=== PATIENT | female | born 1955 | race Caucasian/White ===

== ENCOUNTER 2017-08-23 11:12 | Emergency (ER) | payer OTHER ==
[2017-08-23 11:19] VITALS: BP 182/74; PULSE 71; TEMP 98; BMI 39.1
--- NOTE | 2017-08-23 13:37 | PDOC ---
History of Present Illness - General Chief Complaint: Injury Stated Complaint: RT TOE INJURY Time Seen by Provider: 08/23/17 11:40 History Source: Patient Exam Limitations: No Limitations - History of Present Illness Initial Comments: 08/23/17 15:34 CHIEF COMPLAINT: Right great toe pain HISTORY OF PRESENT ILLNESS: Patient is a 62-year-old female presents with right great toe pain, nontraumatic, pain to right medial great toe. Occurred: reports: other (3 days) Severity: Yes: moderate Lower Extremity Pain Location: right: 1st toe Lower Ext. Injury Location - Specific Injury Location Foot: right foot pain Extremity Pain Location - Extremity Pain Location Extremity Pain Locations: right: 1st toe Past History - Past Medical History Allergies/Adverse Reactions: Allergies Allergy/AdvReac Type Severity Reaction Status Date / Time No Known Allergies Allergy Verified 08/23/17 11:15 Home Medications: Ambulatory Orders Atorvastatin Ca [Lipitor] 20 mg PO HS #0 tablet 12/26/11 Benazepril HCl [Lotensin] 40 mg PO DAILY #0 tablet 12/26/11 Multivitamins [Multivit ([facility] Formulary)] 1 tab PO DAILY 03/04/14 Omeprazole [Prilosec] 20 mg PO DAILY #0 capsule. 03/04/14 Vitamin E 1 tab PO DAILY 03/04/14 Naproxen [Naprosyn -] 500 mg PO BID #14 tablet 08/23/17 Anemia: No Asthma: No Cancer: No Cardiac Disorders: No CVA: No COPD: No CHF: No Dementia: No Diabetes: No GI Disorders: Yes (H/O COLONIC POLYP) Disorders: No HTN: Yes Hypercholesterolemia: Yes Kidney Stones: Yes Liver Disease: No Seizures: No Thyroid Disease: No - Surgical History Abdominal Surgery: No Appendectomy: No Cardiac Surgery: No Cholecystectomy: No Lung Surgery: No Neurologic Surgery: No Orthopedic Surgery: Yes (right hip surgery) - Immunization History Immunization Up to Date: Yes - Suicide/Smoking/Psychosocial Hx Smoking Status: Yes Smoking History: Never smoked Have you smoked in the past 12 months: Yes Number of Cigarettes Smoked Daily: 10 Information on smoking cessation initiated: No 'Breaking Loose' booklet given: 12/24/11 Hx Alcohol Use: No Drug/Substance Use Hx: No Substance Use Type: None Hx Substance Use Treatment: No Review of Systems - Review of Systems Constitutional: No: Symptoms Reported Respiratory: No: Symptoms reported Cardiac (ROS): No: Symptoms Reported Musculoskeletal: Yes: Joint Pain, Joint Swelling Integumentary: No: Bruising, Erythema Hematologic/Lymphatic: No: Symptoms Reported All Other Systems: Reviewed and Negative *Physical Exam - Vital Signs Last Vital Signs Temp Pulse Resp BP Pulse Ox 98.0 F 71 16 182/74 99 08/23/17 11:16 08/23/17 11:16 08/23/17 11:16 08/23/17 11:16 08/23/17 11:16 - Physical Exam General Appearance: Yes: Appropriately Dressed. No: Apparent Distress Respiratory/Chest: positive: Lungs Clear, Normal Breath Sounds Cardiovascular: positive: Regular Rhythm, Regular Rate Extremity: positive: Swelling, Erythema. negative: Coldness, Cyanosis, Calf Tenderness, Inflammation Integumentary: positive: Normal Color, Dry, Erythema. negative: Swelling, Ecchymosis, Bruising Neurologic: positive: Alert, Normal Mood/Affect, Normal Response, Motor Strength 5/5 ED Treatment Course - RADIOLOGY Radiology Studies Ordered: Category Date Time Status FOOT-RIGHT [RAD] Stat Radiology 08/23/17 12:33 Completed Medical Decision Making - Medical Decision Making 08/23/17 15:40 A/P: Patient with right great toe pain, Sent to xray, and uric acid sent. 08/23/17 15:42 Laboratory Results - last 24 hr 08/23/17 12:45 Uric Acid 6.7 Uric acid unremarkable for gout, X-ray with hallus valgus, bunion. Will DC patient home on anti-inflammatories and follow up with podiatry. *DC/Admit/Observation/Transfer Diagnosis at time of Disposition: Hallux valgus (acquired), right foot - Discharge Dispostion Disposition: HOME Condition at time of disposition: Stable Admit: No - Prescriptions Prescriptions: Naproxen [Naprosyn -] 500 mg PO BID #14 tablet - Referrals Referrals: Lamar Rogers [Primary Care Provider] - - Patient Instructions Printed Discharge Instructions: DI for Bunion Additional Instructions: X-rays negative for acute fracture however demonstrate hallux valgus, bunion which can be causing pain. Recommend follow-up with podiatry. Anti-inflammatories for pain. - Post Discharge Activity Forms/Work/School Notes: Back to Work
== END 2017-08-23 14:01 | disposition home or self-care (01) ==
LOC: JERFT 11:12
DX: M20.11 Hallux valgus (acquired), right foot (principal); I10 Essential (primary) hypertension; E78.00 Pure hypercholesterolemia, unspecified; Z86.010 Personal history of colon polyps; Z87.891 Personal history of nicotine dependence
CPT/HCPCS: 36415; 73630-TC-RT-FY; 84550; 99281-25

== ENCOUNTER 2020-10-21 22:51 | Observation (INO) | payer OTHER ==
[2020-10-22 00:40] LABS: BASO % 1.1 % (0-2.0); EOS % 1.2 % (0-4.5); HEMATOCRIT 40.9 % (32.4-45.2); HEMOGLOBIN 14.1 GM/dL (10.7-15.3); LYMPH % 34.9 % (8-40); MCH 32.3 pg (25.7-33.7); MCHC 34.5 g/dl (32.0-36.0); MEAN CELL VOLUME 93.7 fl (80-96); MEAN PLT VOLUME 8.5 fl (7.5-11.1); MONO % 8.2 % (3.8-10.2); NEUT % 54.6 % (42.8-82.8); PLATELET COUNT 209 K/MM3 (134-434); RBC 4.36 M/mm3 (3.60-5.2); RDW 13.6 % (11.6-15.6); WHITE BLOOD COUNT 8.3 K/mm3 (4.0-10.0)
[2020-10-22 00:53] LABS: CHLORIDE 108 mmol/L (98-107); SODIUM 139 mmol/L (136-145)
[2020-10-22 00:55] LABS: CALCIUM 8.6 mg/dL (8.5-10.1)
[2020-10-22 00:56] LABS: ALBUMIN 3.8 g/dl (3.4-5.0); ANION GAP 6 MMOL/L (8-16); BLOOD UREA NITROGEN 17.3 mg/dL (7-18); CO2 26 mmol/L (21-32); GLUCOSE,RANDOM 103 mg/dL (74-106); LIPASE 110 U/L (73-393); MAGNESIUM 2.1 mg/dL (1.8-2.4)
[2020-10-22 00:59] LABS: CREATININE 0.8 mg/dL (0.55-1.3); SGPT/ALT 20 U/L (13-61)
[2020-10-22 01:00] LABS: BILIRUBIN,TOTAL 0.5 mg/dL (0.2-1); SGOT/AST 24 U/L (15-37); TOT PROT 7.3 g/dl (6.4-8.2)
[2020-10-22 01:01] LABS: ALK PHOS 110 U/L (45-117)
[2020-10-22 04:02] VITALS: BMI 40.5
[2020-10-22 07:16] LABS: BASO % 1.1 % (0-2.0); EOS % 1.5 % (0-4.5); HEMATOCRIT 38.5 % (32.4-45.2); HEMOGLOBIN 13.2 GM/dL (10.7-15.3); LYMPH % 38.4 % (8-40); MCH 32.1 pg (25.7-33.7); MCHC 34.4 g/dl (32.0-36.0); MEAN CELL VOLUME 93.4 fl (80-96); MEAN PLT VOLUME 8.9 fl (7.5-11.1); MONO % 8.3 % (3.8-10.2); NEUT % 50.7 % (42.8-82.8); PLATELET COUNT 188 K/MM3 (134-434); RBC 4.12 M/mm3 (3.60-5.2); RDW 13.5 % (11.6-15.6); WHITE BLOOD COUNT 6.3 K/mm3 (4.0-10.0)
[2020-10-22 07:24] LABS: CHLORIDE 110 mmol/L (98-107); SODIUM 139 mmol/L (136-145)
[2020-10-22 07:26] LABS: CALCIUM 8.3 mg/dL (8.5-10.1)
[2020-10-22 07:27] LABS: ALBUMIN 3.4 g/dl (3.4-5.0); ANION GAP 6 MMOL/L (8-16); BLOOD UREA NITROGEN 16.4 mg/dL (7-18); CO2 24 mmol/L (21-32); GLUCOSE,RANDOM 81 mg/dL (74-106); MAGNESIUM 2.2 mg/dL (1.8-2.4)
[2020-10-22 07:29] LABS: CHOLESTEROL 165 mg/dL (50-200)
[2020-10-22 07:30] LABS: CREATININE 0.7 mg/dL (0.55-1.3); PHOSPHOROUS 4.4 mg/dL (2.5-4.9); SGOT/AST 18 U/L (15-37); SGPT/ALT 18 U/L (13-61); TRIGLYCERIDES 234 mg/dL (0-150)
[2020-10-22 07:31] LABS: BILIRUBIN,TOTAL 0.6 mg/dL (0.2-1); LDL CHOLESTEROL (ONLY SJRH) 97 mg/dL (5-100); TOT PROT 6.5 g/dl (6.4-8.2)
[2020-10-22 07:32] LABS: ALK PHOS 99 U/L (45-117); HDL CHOLESTEROL 35 mg/dL (40-60)
[2020-10-22] MEDS ORDERED: ENOXAPARIN NA (PORCINE) 40 MG/0.4 ML DISP.SYRIN SQ SCH (10:00)
[2020-10-22 15:40] VITALS: BP 138/92; PULSE 66; TEMP 98.1
== END 2020-10-22 18:22 | disposition home or self-care (01) ==
LOC: JER 22:51 → JERBED 10-22 01:12 → J4W 10-22 03:30
PROVIDERS: ADMIT Internal Medicine; ATTEND Internal Medicine
PROC: 3E023GC Introduction of Other Therapeutic Substance into Muscle, Percutaneous Approach (ICD-10-PCS; principal; 2020-10-22)
DX: Z87.891 Personal history of nicotine dependence (principal); I10 Essential (primary) hypertension; E78.5 Hyperlipidemia, unspecified; R00.1 Bradycardia, unspecified; Z29.9 Encounter for prophylactic measures, unspecified; E66.01 Morbid (severe) obesity due to excess calories; Z68.41 Body mass index [BMI] 40.0-44.9, adult
CPT/HCPCS: 36415; 70450-TC; 71045-TC-FY; 80053; 80061; 82550; 83690; 83721; 83735; 84100; 84484; 85025; 93005; 93010; 93970-TC; 99285-25; C9803; G0378; U0003; U0005

== ENCOUNTER 2021-02-02 04:25 | Day surgery (SDC) | payer OTHER ==
[2021-01-31 18:10] VITALS: BMI 38.5
[2021-02-02] MEDS ORDERED: LIDOCAINE HCL 1%, 10 MG/ML (20ML VIAL) ONE (07:09)
[2021-02-02] MEDS ORDERED: HEPARIN NA (PORCINE) 5,000 UNITS/ML 1ML VIAL ONE ×2 (07:09→08:24)
[2021-02-02] MEDS ORDERED: PROPOFOL 20 ML ONE (07:17)
[2021-02-02] MEDS ORDERED: MIDAZOLAM HCL 2 MG/2 ML SINGLE DOSE VIAL ONE (07:17)
[2021-02-02] MEDS ORDERED: SUCCINYLCHOLINE CHLORIDE 200 MG/10 ML SYRINGE ONE (07:17)
[2021-02-02] MEDS ORDERED: ceFAZolin 2 GRAM PREMIX BAG IVPB ONE (08:00)
[2021-02-02] MEDS ORDERED: LIDOCAINE HCL 1%, 10 MG/ML (20ML VIAL) NR ONE ×2 (08:12)
[2021-02-02] MEDS ORDERED: HEPARIN NA (PORCINE) 5,000 UNITS/ML 1ML VIAL SQ ONE (08:13)
[2021-02-02] MEDS ORDERED: ONDANSETRON 4 MG/2 ML VIAL IVPUSH PRN (08:49)
[2021-02-02] MEDS ORDERED: oxyCODONE HCL 5 MG TABLET PO PRN ×2 (08:49)
[2021-02-02] MEDS ORDERED: LACTATED RINGERS SOLUTION 1,000 ML IV SCH (09:00)
[2021-02-02] MEDS ORDERED: CLOPIDOGREL BISULFATE 75 MG TABLET (FP) ONE (09:29)
[2021-02-02] MEDS ORDERED: CLOPIDOGREL BISULFATE 75 MG TABLET (FP) PO SCH (10:00)
[2021-02-02 12:31] VITALS: BP 130/48; PULSE 65; TEMP 97.8
== END 2021-02-02 11:21 | disposition home or self-care (01) ==
LOC: JASU-SURG 04:25
PROVIDERS: ATTEND Surgery Vascular Surgery
PROC: 047L3Z1 Dilation of Left Femoral Artery using Drug-Coated Balloon, Percutaneous Approach (ICD-10-PCS; principal; 2021-02-02 07:30)
DX: I70.212 Atherosclerosis of native arteries of extremities with intermittent claudication, left leg (principal)
CPT/HCPCS: 37225; C1885; 76000-TC-FY; 94760; J1644

== ENCOUNTER 2023-11-23 15:10 | Inpatient (IN) | payer OTHER ==
[2023-11-23 16:37] LABS: BASO % 0.1 % (0-2.0); HEMATOCRIT 35.8 % (32.4-45.2); HEMOGLOBIN 12.5 GM/dL (10.7-15.3); LYMPH % 6.6 % (8-40); MCH 32.1 pg (25.7-33.7); MCHC 34.8 g/dl (32.0-36.0); MEAN CELL VOLUME 92.3 fl (80-96); MEAN PLT VOLUME 7.9 fl (7.5-11.1); MONO % 5.7 % (3.8-10.2); NEUT % 87.6 % (42.8-82.8); PLATELET COUNT 215 10^3/uL (134-434); RBC 3.88 M/mm3 (3.60-5.2); RDW 13.3 % (11.6-15.6); WHITE BLOOD COUNT 9.7 K/mm3 (4.0-10.0)
[2023-11-23 16:41] LABS: INR 0.98 (0.83-1.09); PROTHROMBIN TIME (PATIENT) 11.3 SEC (9.7-13.0)
[2023-11-23 16:44] LABS: ACTIVATED PTT 31.2 SECONDS (25.2-36.5)
[2023-11-23] MEDS: SODIUM CHLORIDE 1,000 ML IV STA (16:44)
[2023-11-23 16:57] LABS: CALCIUM 8.8 mg/dL (8.5-10.1)
[2023-11-23 16:58] LABS: ALBUMIN 2.6 g/dl (3.4-5.0); BLOOD UREA NITROGEN 32.5 mg/dL (7-18); MAGNESIUM 2.5 mg/dL (1.8-2.4)
[2023-11-23 17:01] LABS: CREATININE 1.2 mg/dL (0.55-1.3)
[2023-11-23 17:03] LABS: BILIRUBIN,TOTAL 0.7 mg/dL (0.2-1); TOT PROT 6.9 g/dl (6.4-8.2)
[2023-11-23] MEDS ORDERED: CEFTRIAXONE 1 GM/50 ML BAG ONE (18:24)
[2023-11-23] MEDS: CEFTRIAXONE 1,000 MG in DEXTROSE 5%-WATER - 50 ML IVPB ONE (18:31)
[2023-11-23] MEDS ORDERED: AZITHROMYCIN IVPB 500 MG/250 ML BAG IVPB ONE (18:32)
[2023-11-23] MEDS: AZITHROMYCIN IVPB 500 MG in DEXTROSE 5%-WATER - 250 ML IVPB ONE (18:48)
[2023-11-23] MEDS ORDERED: ALBUTEROL SO4 2.5/IPRATROPIUM 0.5 INH SOL 3 ML VIAL.NEB. NEB PRN (20:59)
[2023-11-23 23:05] LABS: N-TERMINAL BNP 1270.9 pg/ml (5-125)
[2023-11-24 00:19] LABS: EPI CELLS 10 /uL (0-25.1); HYALINE CASTS 1 /uL (0-3.1); URINE APPEARANCE CLEAR; URINE BACTERIA 85 /uL (0-1359); URINE BILIRUBIN NEGATIVE (NEGATIVE); URINE COLOR YELLOW; URINE GLUCOSE (UA) NEGATIVE (NEGATIVE); URINE KETONE NEGATIVE (NEGATIVE); URINE LEUK ESTERASE NEGATIVE (NEGATIVE); URINE NITRITE NEGATIVE (NEGATIVE); URINE PROTEIN TRACE (NEGATIVE); URINE RBC 39 /uL (0-23.9); URINE UROBILINOGEN 0.2 mg/dL (0.2-1.0); URINE WBC 10 /uL (0-25.8)
[2023-11-24] MEDS ORDERED: ACETAMINOPHEN 325 MG TABLET (FP) PO PRN ×2 (01:26→01:31)
[2023-11-24] MEDS ORDERED: ACETAMINOPHEN 325 MG TABLET (FP) ONE (01:40)
[2023-11-24] MEDS: methylPREDNISolone NA SUCC 40 MG/1 ML VIAL IVPUSH SCH (01:42)
[2023-11-24] MEDS: ACETAMINOPHEN 325 MG TABLET (FP) PO ONE (01:42)
[2023-11-24] MEDS: ALBUTEROL SO4 2.5/IPRATROPIUM 0.5 INH SOL 3 ML VIAL.NEB. NEB SCH (04:35)
[2023-11-24] MEDS: levoFLOXacin 500 MG, levoFLOXacin 250 MG PO SCH (06:19)
[2023-11-24 06:25] LABS: HEMATOCRIT 33.1 % (32.4-45.2); HEMOGLOBIN 11.5 GM/dL (10.7-15.3); MCH 32.1 pg (25.7-33.7); MCHC 34.9 g/dl (32.0-36.0); MEAN CELL VOLUME 92.2 fl (80-96); MEAN PLT VOLUME 8.3 fl (7.5-11.1); PLATELET COUNT 209 10^3/uL (134-434); RBC 3.59 M/mm3 (3.60-5.2); RDW 13.1 % (11.6-15.6); WHITE BLOOD COUNT 7.5 K/mm3 (4.0-10.0)
[2023-11-24 06:53] LABS: POTASSIUM 4.3 mmol/L (3.5-5.1)
[2023-11-24 06:55] LABS: CALCIUM 8.2 mg/dL (8.5-10.1)
[2023-11-24 06:56] LABS: ALBUMIN 2.3 g/dl (3.4-5.0); BLOOD UREA NITROGEN 27.4 mg/dL (7-18); MAGNESIUM 2.3 mg/dL (1.8-2.4)
[2023-11-24 06:59] LABS: CREATININE 0.8 mg/dL (0.55-1.3); PHOSPHOROUS 3.2 mg/dL (2.5-4.9)
[2023-11-24 07:00] LABS: BILIRUBIN,TOTAL 0.6 mg/dL (0.2-1); TOT PROT 6.4 g/dl (6.4-8.2)
[2023-11-24] MEDS ORDERED: ALBUTEROL SO4 2.5/IPRATROPIUM 0.5 INH SOL 3 ML VIAL.NEB. NEB ONE ×2 (08:41→12:08)
[2023-11-24] MEDS ORDERED: CLOPIDOGREL BISULFATE 75 MG TABLET (FP) ONE (09:44)
[2023-11-24] MEDS ORDERED: amLODIPine BESYLATE 5 MG TABLET (FP) ONE (09:44)
[2023-11-24] MEDS ORDERED: levoFLOXacin 750 MG TABLET PO SCH (10:00)
[2023-11-24] MEDS: CLOPIDOGREL BISULFATE 75 MG TABLET (FP) PO SCH (10:00)
[2023-11-24] MEDS ORDERED: amLODIPine BESYLATE 10 MG TABLET (FP) PO SCH (10:00)
[2023-11-24] MEDS: amLODIPine BESYLATE 5 MG TABLET (FP) PO SCH (10:00)
[2023-11-24 14:56] VITALS: BMI 30.9
[2023-11-24] MEDS: SODIUM CHLORIDE 1,000 ML IV SCH (15:58)
[2023-11-24 19:26] LABS: POTASSIUM 3.8 mmol/L (3.5-5.1)
[2023-11-24 19:27] LABS: CALCIUM 8.7 mg/dL (8.5-10.1)
[2023-11-24 19:28] LABS: BLOOD UREA NITROGEN 28.3 mg/dL (7-18)
[2023-11-24 19:31] LABS: CREATININE 0.9 mg/dL (0.55-1.3)
[2023-11-24] MEDS: LISINOPRIL 20 MG TABLET PO SCH (21:30)
[2023-11-24] MEDS ORDERED: ATORVASTATIN CA 20 MG TABLET (FP) PO SCH (22:00)
[2023-11-25 09:08] LABS: BASO % 0.2 % (0-2.0); HEMATOCRIT 31.6 % (32.4-45.2); HEMOGLOBIN 10.8 GM/dL (10.7-15.3); LYMPH % 14.3 % (8-40); MCH 31.8 pg (25.7-33.7); MCHC 34.3 g/dl (32.0-36.0); MEAN CELL VOLUME 92.7 fl (80-96); MEAN PLT VOLUME 7.9 fl (7.5-11.1); NEUT % 78.5 % (42.8-82.8); PLATELET COUNT 256 10^3/uL (134-434); RBC 3.41 M/mm3 (3.60-5.2); RDW 13.2 % (11.6-15.6); WHITE BLOOD COUNT 9.1 K/mm3 (4.0-10.0)
[2023-11-25 09:23] LABS: POTASSIUM 4.1 mmol/L (3.5-5.1)
[2023-11-25 09:26] LABS: CALCIUM 8.7 mg/dL (8.5-10.1)
[2023-11-25 09:27] LABS: BLOOD UREA NITROGEN 22.6 mg/dL (7-18)
[2023-11-25 09:28] LABS: ALBUMIN 2.2 g/dl (3.4-5.0)
[2023-11-25 09:29] LABS: CREATININE 0.7 mg/dL (0.55-1.3)
[2023-11-25 09:31] LABS: BILIRUBIN,DIRECT 0.1 mg/dL (0.0-0.2)
[2023-11-25 09:33] LABS: BILIRUBIN,TOTAL 0.4 mg/dL (0.2-1); TOT PROT 6.1 g/dl (6.4-8.2)
[2023-11-25] MEDS: ENOXAPARIN NA (PORCINE) 40 MG/0.4 ML DISP.SYRIN SQ SCH (09:57)
[2023-11-25] MEDS: NICOTINE 7 MG/24 HOURS TOPICAL PATCH TD SCH (16:40)
[2023-11-25 23:33] VITALS: RESP 20
[2023-11-26] MEDS: MELATONIN 5 MG TABLETS PO ONE (00:58)
[2023-11-26 07:41] LABS: BASO % 0.3 % (0-2.0); EOS % 0.3 % (0-4.5); HEMATOCRIT 30.5 % (32.4-45.2); HEMOGLOBIN 10.5 GM/dL (10.7-15.3); LYMPH % 21.7 % (8-40); MCH 32.1 pg (25.7-33.7); MCHC 34.5 g/dl (32.0-36.0); MEAN CELL VOLUME 93.1 fl (80-96); MEAN PLT VOLUME 7.5 fl (7.5-11.1); MONO % 10.7 % (3.8-10.2); PLATELET COUNT 296 10^3/uL (134-434); RBC 3.27 M/mm3 (3.60-5.2); RDW 13.3 % (11.6-15.6)
[2023-11-26 07:50] LABS: POTASSIUM 4.8 mmol/L (3.5-5.1)
[2023-11-26 08:11] LABS: CALCIUM 8.5 mg/dL (8.5-10.1)
[2023-11-26 08:12] LABS: ALBUMIN 2.1 g/dl (3.4-5.0); BLOOD UREA NITROGEN 18.4 mg/dL (7-18)
[2023-11-26 08:14] LABS: CREATININE 0.6 mg/dL (0.55-1.3)
[2023-11-26 08:15] LABS: BILIRUBIN,TOTAL 0.6 mg/dL (0.2-1); TOT PROT 5.9 g/dl (6.4-8.2)
[2023-11-26 10:56] VITALS: BP 109/62; PULSE 58; TEMP 97.7
[2023-11-26] MEDS ORDERED: MELATONIN 5 MG TABLETS PO PRN (22:00)
[2023-11-27] MEDS ORDERED: levoFLOXacin 750 MG TABLET PO SCH (06:00)
== END 2023-11-26 12:18 | disposition home or self-care (01) | DRG 178 ==
LOC: JER 15:10 → OBSVTOIN 18:25 → JERBED 18:25 → J8W 11-24 13:41
PROVIDERS: ADMIT Internal Medicine; ATTEND Nurse Practitioner Acute Care
DX: A48.1 Legionnaires' disease (principal); E87.1 Hypo-osmolality and hyponatremia; I10 Essential (primary) hypertension; E78.5 Hyperlipidemia, unspecified; I73.9 Peripheral vascular disease, unspecified; R74.01 Elevation of levels of liver transaminase levels; F17.210 Nicotine dependence, cigarettes, uncomplicated; D64.9 Anemia, unspecified; E66.9 Obesity, unspecified; Z68.30 Body mass index [BMI] 30.0-30.9, adult
CPT/HCPCS: 0241U-QW; 36415; 71046-TC-FY; 80048; 80053; 80076; 81003; 82248; 82550; 82570; 83735; 83880; 83935; 84100; 84300; 84484; 85025; 85027; 85610; 85730; 86140; 86705; 86707; 86708; 86713; 86803; 87040; 87070; 87086; 87340; 87350; 87517; 87899; 93005; 93010; 94640; 97116-GP; 97161-GP; 99285-25

== ENCOUNTER 2024-06-16 19:19 | Inpatient (IN) | payer OTHER ==
[2024-06-16 19:43] VITALS: BMI 28.1
[2024-06-16] MEDS: SODIUM CHLORIDE 0.9% 500 ML INFUS.BAG IV ONE ×2 (20:40→23:32)
[2024-06-16 21:48] LABS: BASO % 0.3 % (0-2.0); HEMATOCRIT 40.8 % (32.4-45.2); HEMOGLOBIN 14.1 GM/dL (10.7-15.3); LYMPH % 7.7 % (8-40); MCH 32.4 pg (25.7-33.7); MCHC 34.7 g/dl (32.0-36.0); MEAN CELL VOLUME 93.5 fl (80-96); MEAN PLT VOLUME 7.7 fl (7.5-11.1); MONO % 3.4 % (3.8-10.2); NEUT % 88.6 % (42.8-82.8); PLATELET COUNT 215 10^3/uL (134-434); RBC 4.37 M/mm3 (3.60-5.2); RDW 13.1 % (11.6-15.6); WHITE BLOOD COUNT 8.5 K/mm3 (4.0-10.0)
[2024-06-16 21:53] LABS: INR 1.05 (0.83-1.09); PROTHROMBIN TIME (PATIENT) 11.8 SEC (9.7-13.0)
[2024-06-16 21:55] LABS: ACTIVATED PTT 28.1 SECONDS (25.2-36.5)
[2024-06-16 22:12] LABS: POTASSIUM 3.9 mmol/L (3.5-5.1)
[2024-06-16 22:15] LABS: ALBUMIN 3.3 g/dl (3.4-5.0); BLOOD UREA NITROGEN 15.5 mg/dL (7-18); CALCIUM 9.2 mg/dL (8.5-10.1)
[2024-06-16 22:18] LABS: CREATININE 1.3 mg/dL (0.55-1.3)
[2024-06-16 22:20] LABS: BILIRUBIN,TOTAL 1.6 mg/dL (0.2-1); TOT PROT 6.9 g/dl (6.4-8.2)
[2024-06-17] MEDS ORDERED: ACETAMINOPHEN INJECTION 100 ML ONE (00:26)
[2024-06-17] MEDS: ACETAMINOPHEN 1000 MG/100 ML BAG IVPB ONE (00:30)
[2024-06-17] MEDS ORDERED: PIPERACILLIN/TAZOB 3.375 GM 3.375 GM/50 ML BAG IVPB ONE (00:32)
[2024-06-17] MEDS: PIPERACILLIN/TAZOB 3.375 GM 3.375 GM in DEXTROSE 5%-WATER - 50 ML IVPB ONE (00:46)
[2024-06-17] MEDS: SODIUM CHLORIDE 500 ML IV STA ×3 (02:53→04:09)
[2024-06-17] MEDS: SODIUM CHLORIDE 1,000 ML IV SCH (04:24)
[2024-06-17] MEDS: PIPERACILLIN/TAZOB 3.375 GM 50 ML IVPB SCH ×2 (04:28→15:52)
[2024-06-17] MEDS ORDERED: ROCURONIUM BROMIDE 50 MG/5 ML SYRINGE ONE (08:34)
[2024-06-17] MEDS ORDERED: SUCCINYLCHOLINE CHLORIDE 200 MG/10 ML SYRINGE ONE (08:34)
[2024-06-17] MEDS ORDERED: BUPIVACAINE HCL/PF 0.25% (2.5MG/ML) 10 ML VIAL ONE (08:58)
[2024-06-17 08:59] LABS: URINE APPEARANCE CLEAR; URINE BILIRUBIN NEGATIVE (NEGATIVE); URINE COLOR YELLOW; URINE GLUCOSE (UA) NEGATIVE (NEGATIVE); URINE KETONE NEGATIVE (NEGATIVE); URINE LEUK ESTERASE NEGATIVE (NEGATIVE); URINE NITRITE NEGATIVE (NEGATIVE); URINE PROTEIN TRACE (NEGATIVE); URINE UROBILINOGEN 0.2 mg/dL (0.2-1.0)
[2024-06-17 09:07] LABS: BASO % 0.4 % (0-2.0); LYMPH % 7.8 % (8-40); MCH 32.3 pg (25.7-33.7); MCHC 34.2 g/dl (32.0-36.0); MEAN CELL VOLUME 94.4 fl (80-96); MEAN PLT VOLUME 8.2 fl (7.5-11.1); MONO % 2.8 % (3.8-10.2); PLATELET COUNT 178 10^3/uL (134-434); RDW 13.4 % (11.6-15.6); WHITE BLOOD COUNT 9.8 K/mm3 (4.0-10.0)
[2024-06-17 09:08] LABS: INR 1.16 (0.83-1.09); PROTHROMBIN TIME (PATIENT) 13.3 SEC (9.7-13.0)
[2024-06-17 09:13] LABS: POTASSIUM 3.7 mmol/L (3.5-5.1)
[2024-06-17 09:16] LABS: BLOOD UREA NITROGEN 20.1 mg/dL (7-18); MAGNESIUM 1.7 mg/dL (1.8-2.4)
[2024-06-17 09:17] LABS: ALBUMIN 2.4 g/dl (3.4-5.0)
[2024-06-17 09:20] LABS: CREATININE 0.9 mg/dL (0.55-1.3)
[2024-06-17 09:21] LABS: PHOSPHOROUS 3.7 mg/dL (2.5-4.9)
[2024-06-17 09:22] LABS: BILIRUBIN,TOTAL 1.8 mg/dL (0.2-1); TOT PROT 5.4 g/dl (6.4-8.2)
[2024-06-17] MEDS ORDERED: ETOMIDATE 20 MG/10 ML VIAL IVPUSH ONE (09:32)
[2024-06-17] MEDS ORDERED: ONDANSETRON 4 MG/2 ML VIAL ONE (09:33)
[2024-06-17] MEDS ORDERED: DEXAMETHASONE SOD PHOSPHATE 4 MG/1 ML VIAL ONE (09:33)
[2024-06-17] MEDS ORDERED: LIDOCAINE HCL/PF 2% SDV 5ML VIAL ONE (09:33)
[2024-06-17] MEDS ORDERED: NOREPINEPHRINE BITARTRATE 4 MG/4 ML ML IV ONE (09:34)
[2024-06-17] MEDS ORDERED: MIDAZOLAM HCL 2 MG/2 ML SINGLE DOSE VIAL ONE (09:34)
[2024-06-17] MEDS ORDERED: ALBUTEROL SO4 HFA INHALER IH ONE (09:47)
[2024-06-17] MEDS ORDERED: GLYCOPYRROLATE 0.2 MG/1 ML VIAL ONE (09:47)
[2024-06-17] MEDS ORDERED: CLOPIDOGREL BISULFATE 75 MG TABLET (FP) PO SCH (10:00)
[2024-06-17] MEDS ORDERED: PROPOFOL 20 ML ONE (10:04)
[2024-06-17] MEDS ORDERED: ONDANSETRON 4 MG/2 ML VIAL IVPUSH PRN ×2 (10:29→11:37)
[2024-06-17] MEDS ORDERED: EPINEPHrine/PF 1 MG/1 ML (1:1,000) AMPULE ONE (10:48)
[2024-06-17] MEDS ORDERED: SUGAMMADEX SODIUM 200 MG/2 ML VIAL ONE (10:51)
[2024-06-17] MEDS: BUPIVACAINE HCL/PF 0.25% (2.5MG/ML) 10 ML VIAL IJ ONE (11:00)
[2024-06-17] MEDS ORDERED: oxyCODONE HCL 5 MG TABLET PO PRN (11:37)
[2024-06-17] MEDS: LACTATED RINGERS SOLUTION 1,000 ML IV SCH ×2 (11:43→12:16)
[2024-06-17] MEDS: ACETAMINOPHEN 650 MG/20.3 ML ORAL SOLUTION (CUPS) PO SCH (14:57)
[2024-06-17] MEDS: ATORVASTATIN CA 40 MG TABLET (FP) PO SCH (21:23)
[2024-06-17] MEDS ORDERED: ATORVASTATIN CA 40 MG TABLET (FP) PO SCH (22:00)
[2024-06-17 23:16] VITALS: RESP 18
[2024-06-18] MEDS ORDERED: ACETAMINOPHEN 650 MG/20.3 ML ORAL SOLUTION (CUPS) PO PRN (05:38)
[2024-06-18] MEDS: ACETAMINOPHEN 325 MG TABLET (FP) PO PRN (05:52)
[2024-06-18] MEDS: DOCUSATE SODIUM 100 MG CAPSULE (FP) PO SCH (09:08)
[2024-06-18 09:53] LABS: HEMATOCRIT 34.2 % (32.4-45.2); HEMOGLOBIN 11.6 GM/dL (10.7-15.3); MCH 32.1 pg (25.7-33.7); MCHC 33.9 g/dl (32.0-36.0); MEAN CELL VOLUME 94.7 fl (80-96); MEAN PLT VOLUME 8.5 fl (7.5-11.1); PLATELET COUNT 175 10^3/uL (134-434); RBC 3.61 M/mm3 (3.60-5.2); RDW 13.5 % (11.6-15.6)
[2024-06-18 10:21] LABS: ALBUMIN 2.3 g/dl (3.4-5.0); BLOOD UREA NITROGEN 28.1 mg/dL (7-18); CALCIUM 8.3 mg/dL (8.5-10.1)
[2024-06-18 10:25] LABS: CREATININE 0.9 mg/dL (0.55-1.3)
[2024-06-18 10:27] LABS: BILIRUBIN,TOTAL 0.8 mg/dL (0.2-1); TOT PROT 5.6 g/dl (6.4-8.2)
[2024-06-18 12:00] LABS: BASO % 0.5 % (0-2.0); HEMATOCRIT 33.1 % (32.4-45.2); LYMPH % 5.1 % (8-40); MCH 31.8 pg (25.7-33.7); MCHC 33.4 g/dl (32.0-36.0); MEAN CELL VOLUME 95.2 fl (80-96); MEAN PLT VOLUME 8.2 fl (7.5-11.1); MONO % 3.7 % (3.8-10.2); NEUT % 90.7 % (42.8-82.8); PLATELET COUNT 176 10^3/uL (134-434); RBC 3.47 M/mm3 (3.60-5.2); RDW 13.5 % (11.6-15.6); WHITE BLOOD COUNT 13.4 K/mm3 (4.0-10.0)
[2024-06-18] MEDS: MAGNESIUM 2GM/50ML STERILE WATER IVPB IVPB ONE (13:22)
[2024-06-19] MEDS: KETOROLAC TROMETHAMINE 15 MG/ML VIAL IVPUSH PRN (00:54)
[2024-06-19] MEDS ORDERED: PIPERACILLIN/TAZOB 3.375 GM 50 ML IVPB SCH ×2 (03:00)
[2024-06-19] MEDS: CLOPIDOGREL BISULFATE 75 MG TABLET (FP) PO SCH (09:10)
[2024-06-19 09:40] VITALS: BP 125/58; PULSE 43; TEMP 97.9
== END 2024-06-19 10:18 | disposition home or self-care (01) | DRG 399 ==
LOC: JER 19:19 → JERBED 06-17 00:06 → J5S 06-17 02:29
PROVIDERS: ADMIT Internal Medicine
PROC: 0DTJ4ZZ Resection of Appendix, Percutaneous Endoscopic Approach (ICD-10-PCS; principal; 2024-06-17 09:00)
DX: K35.891 Other acute appendicitis without perforation, with gangrene (principal); I10 Essential (primary) hypertension; E78.5 Hyperlipidemia, unspecified; I95.9 Hypotension, unspecified; F17.200 Nicotine dependence, unspecified, uncomplicated
CPT/HCPCS: 36415; 74177-TC; 80048; 80053; 81003; 83690; 83735; 84100; 85025; 85027; 85610; 85730; 86850; 86900; 86901; 87070; 87075; 87086; 87186; 87205; 88304-TC; 93005; 93010; 94760; 99285-25; J0131; Q9967